=== PATIENT | male | born 1990 | race African-American/Black ===

== ENCOUNTER 2020-01-22 08:45 | Emergency (ER) | payer SELFPAY ==
[~2020-01-22] VITALS: Ht 177.8 cm; Wt 83.9 kg
[2020-01-22] MEDS ORDERED: KETOROLAC TROMETH 60MG/2ML VIAL IM ONE (09:00)
[2020-01-22 09:12] VITALS: BP 141/70
== END 2020-01-22 11:53 | disposition home or self-care (01) ==
LOC: ER 08:45
DX: S33.5XXD Sprain of ligaments of lumbar spine, subsequent encounter (principal); X58.XXXD Exposure to other specified factors, subsequent encounter
CPT/HCPCS: 72100; 96372; 99283; J1885